=== PATIENT | female | born 1965 | race Hispanic/Latino ===

== ENCOUNTER 2017-01-13 15:27 | Emergency (ER) | payer OTHER, BC ==
[2017-01-13 15:35] VITALS: BMI 16.7
[2017-01-13 15:36] VITALS: RESP 18; TEMP 98
--- NOTE | 2017-01-13 16:46 | RAD ---
PROCEDURE: Radiographs of the Sacrum and Coccyx HISTORY: Fall COMPARISON: None available. TECHNIQUE: Frontal and lateral views of the sacrum and coccyx FINDINGS: BONES: Sacrum and coccyx are normal in appearance. No acute fracture or focal lesion. 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 OTHER FINDINGS: There are multiple phleboliths in the pelvis. IMPRESSION: No acute fracture or sacrococcygeal dislocation.
--- NOTE | 2017-01-13 17:30 | C.PDOC ---
History Of Present Illness 51 yr old female presents to the ER s/p slipping on the stairs and landing on her right buttock. Patient states the pain in constant and throbbing. Patient is able to walk without a limp. Patient denies LOC, head injury, back pain, weakness or numbness. Time Seen by Provider: 01/13/17 15:49 Chief Complaint (Nursing): Back Pain History Per: Patient History/Exam Limitations: no limitations Onset/Duration Of Symptoms: Days (1) Current Symptoms Are (Timing): Still Present Past Medical History Reviewed: Historical Data, Nursing Documentation, Vital Signs Vital Signs: Last Vital Signs Temp 98 F 01/13/17 15:36 Pulse 78 01/13/17 18:00 Resp 18 01/13/17 18:00 BP 120/75 01/13/17 18:00 Pulse Ox 98 02/04/17 17:58 - [facility] Procedures DPT ADMINISTRATION (11/14/13) Family History: States: No Known Family Hx - Social History Hx Tobacco Use: Yes (8 STICKS A DAY) Hx Alcohol Use: No Hx Substance Use: No Review Of Systems Except As Marked, All Systems Reviewed And Found Negative. Musculoskeletal: Positive for: Other ((+) Right buttock injury ). Negative for : Back Pain Neurological: Negative for: Weakness, Numbness, Headache Physical Exam - Physical Exam Appears: Well, Non-toxic, No Acute Distress Skin: Warm, Dry, No Rash Head: Atraumatic, Normacephalic Oral Mucosa: Moist Chest: Symmetrical, No Tenderness Cardiovascular: Rhythm Regular, No Murmur Respiratory: Normal Breath Sounds, No Rales, No Rhonchi, No Stridor, No Wheezing Extremity: Normal ROM, Tenderness (Left Buttock - Mild tenderness. No bruising ) , No Swelling Neurological/Psych: Oriented x3, Normal Speech, Normal Motor ED Course And Treatment O2 Sat by Pulse Oximetry: 98 - Other Rad X-Ray - Sacrum & Coccyx X-Ray: Viewed By Me, Read By Radiologist Interpretation: PROCEDURE: Radiographs of the Sacrum and Coccyx. HISTORY: Fall. COMPARISON: None available. TECHNIQUE: Frontal and lateral views of the sacrum and coccyx. FINDINGS: BONES: Sacrum and coccyx are normal in appearance. No acute fracture or focal lesion. Bone alignment and mineralization are normal. 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 OTHER FINDINGS: There are multiple phleboliths in the pelvis. IMPRESSION: No acute fracture or sacrococcygeal dislocation. Medical Decision Making Medical Decision Making: PLAN: * X-Ray - Sacrum & Coccyx * Tramadol PO patient feels better. Will be discharged in care of her son. He states she has been drinking , hence the fall. Patient advised to stop drinking. Disposition Counseled Patient/Family Regarding: Studies Performed, Diagnosis, Need For Followup, Rx Given - Disposition Disposition: HOME/ ROUTINE Disposition Time: 17:29 Condition: GUARDED Prescriptions: Ibuprofen [Motrin] 600 mg PO TID #15 tab Instructions: Fall Prevention (ED), Contusion in Adults (ED) Forms: General Discharge Instructions - POA Present On Arrival: None - Clinical Impression Clinical Impression: Low back pain, Fall - Scribe Statement The provider has reviewed the documentation as recorded by the Nikki Jacobsen Provider Attestation: All medical record entries made by the Larissaibmulu were at my direction and personally dictated by me. I have reviewed the chart and agree that the record accurately reflects my personal performance of the history, physical exam, medical decision making, and the department course for this patient. I have also personally directed, reviewed, and agree with the discharge instructions and disposition.
[2017-01-13 18:06] VITALS: BP 120/75; PULSE 78
[2017-02-04 17:56] VITALS: O2SAT 98
== END 2017-01-13 18:07 | disposition home or self-care (01) ==
LOC: C.ER 15:27
DX: M54.5 Low back pain (principal); W10.8XXA Fall (on) (from) other stairs and steps, initial encounter; Y92.89 Other specified places as the place of occurrence of the external cause